=== PATIENT | male | born 1985 | race Asian ===

== ENCOUNTER 2022-08-24 02:18 | Emergency (ER) | payer MEDICAID ==
[~2022-08-24] VITALS: Ht 167.6 cm; Wt 90.7 kg
[2022-08-24 02:30] VITALS: BP_SYST 126
--- NOTE | 2022-08-24 02:41 | NUR ---
Placed in room 5 . Placed on shelter monitor, blood pressure machine and pulse oximeter. To gown for exam. Side rails up. Report given to Dania.
--- NOTE | 2022-08-24 02:53 | NUR ---
pt bit by dog in left lower arm. 3 dog bite flores. edema noted. pain 10/10
[2022-08-24] MEDS ORDERED: DIPHTH,PERTUSS(ACELL),TET VAC 0.5 ML VIAL (Tdap) I.M. ONE (03:00)
[2022-08-24] MEDS ORDERED: LIDOCAINE/EPI 1% 1:100000 20 ML VIAL INJ ONE (03:30)
[2022-08-24] MEDS ORDERED: BACITRACIN 1 GM OINT TP ONE (04:15)
[2022-08-24] MEDS ORDERED: RABIES IMMUNE GLOBULIN/PF 300 UNIT/2 ML VIAL I.M. ONE (04:30)
[2022-08-24] MEDS ORDERED: RABIES VACCINE (PCEC)/PF 2.5 UNIT VIAL I.M. ONE (04:30)
--- NOTE | 2022-08-24 05:03 | NUR ---
applied bacitrim on pt dog bites
[2022-08-24] MEDS ORDERED: AUG875 PO (05:47)
--- NOTE | 2022-08-24 06:38 | NUR ---
referred pt to [facility] due to us not having rabies vaccine.
== END 2022-08-24 06:38 | disposition home or self-care (01) ==
LOC: SED 02:18
DX: S51.831A Puncture wound without foreign body of right forearm, initial encounter (principal); Z79.899 Other long term (current) drug therapy; W54.0XXA Bitten by dog, initial encounter; Y93.89 Activity, other specified; Y92.89 Other specified places as the place of occurrence of the external cause; Y99.8 Other external cause status
CPT/HCPCS: 73090; 90376; 90715; 99284

== ENCOUNTER 2023-06-22 09:40 | Emergency (ER) | payer MEDICAID ==
[~2023-06-22] VITALS: Ht 175.3 cm; Wt 86.2 kg
[2023-06-22 09:40] VITALS: BP_SYST 130; PULSE 81; RESP 18; TEMP 97.2; O2SAT 97
[~2023-06-22 09:40] MED LIST: AUG875 PO
[2023-06-22 10:43] LABS: PROTHROMBIN TIME 10.3 SECS (9.5-12.5)
[2023-06-22 10:55] LABS: BASOPHILS # (AUTO) 0.1 K/uL (0.0-0.2); BASOPHILS % (AUTO) 0.9 % (0.0-2.0); CALCIUM 9.2 mg/dL (8.4-11.0); CREATININE 1.11 mg/dL (0.55-1.30); EOSINOPHILS # (AUTO) 0.2 K/uL (0.0-0.4); EOSINOPHILS % (AUTO) 3.1 % (0.0-4.0); HEMATOCRIT 47.8 % (36-54); HEMOGLOBIN 16.2 g/dL (14.0-18.0); LYMPHOCYTES % (AUTO) 27.9 % (20.5-51.5); MEAN CORPUSCULAR HEMOGLOBIN 30 pg (27-31); MEAN CORPUSCULAR HGB CONC 34 % (32-36); MEAN CORPUSCULAR VOLUME 89 fL (79.0-98.0); MONOCYTES # (AUTO) 0.6 K/uL (0.0-1.0); NEUTROPHILS # (AUTO) 4.2 K/uL (1.8-7.7); NEUTROPHILS % (AUTO) 59.1 % (40.0-70.0); PLATELET COUNT (AUTO) 295 K/uL (130-430); POTASSIUM 4.3 mmol/L (3.5-5.1); RED BLOOD CELL COUNT(AUTO) 5.37 MIL/uL (4.2-6.2); RED CELL DISTRIBUTION WIDTH 12.7 % (9.0-15.0)
[2023-06-22] MEDS ORDERED: IBUP-1971 PO (11:21)
[2023-06-22] MEDS ORDERED: DIPH25CA83 PO (11:21)
[2023-06-22 11:43] VITALS: BP_SYST 110; PULSE 61; RESP 18; O2SAT 99
== END 2023-06-22 11:51 | disposition home or self-care (01) ==
LOC: SED 09:40
DX: B08.4 Enteroviral vesicular stomatitis with exanthem (principal); R21 Rash and other nonspecific skin eruption; Z79.899 Other long term (current) drug therapy
CPT/HCPCS: 36415; 80048; 83605; 85025; 85610; 85730; 99283